=== PATIENT | male | born 1990 | race Caucasian/White ===

== ENCOUNTER 2023-05-18 22:57 | Emergency (ER) | payer MEDICAID ==
[~2023-05-18] VITALS: Ht 167.6 cm; Wt 106.8 kg
[2023-05-19 04:22] VITALS: TEMP 98
[2023-05-19] MEDS ORDERED: ibuprofen tablet 400 MG TABLET PO ONE (04:50)
--- NOTE | 2023-05-19 05:13 | NUR ---
Pt stating pain on scale of 8 out of 10. Has ROM in LE.
[2023-05-19] MEDS ORDERED: predniSONE 20 mg tablet PO ONE (07:45)
[2023-05-19] MEDS ORDERED: NAPR-56 PO (07:46)
[2023-05-19] MEDS ORDERED: PRED20TA PO (07:46)
[2023-05-19 08:26] VITALS: BP 128/83; PULSE 86; RESP 18; O2SAT 96
== END 2023-05-19 08:28 | disposition home or self-care (01) ==
LOC: ER 22:58
DX: S39.012A Strain of muscle, fascia and tendon of lower back, initial encounter (principal); Z79.899 Other long term (current) drug therapy; X58.XXXA Exposure to other specified factors, initial encounter; Y93.89 Activity, other specified; Y92.89 Other specified places as the place of occurrence of the external cause; Y99.8 Other external cause status
CPT/HCPCS: 99285; J7512

== ENCOUNTER 2024-01-14 13:30 | Emergency (ER) | payer MEDICAID ==
[~2024-01-14] VITALS: Ht 167.6 cm; Wt 127.5 kg
[2024-01-14 13:59] VITALS: TEMP 98.6
[2024-01-14] MEDS: HYDROcodone/acetaminophen 5mg/325mg tablet PO ONE (14:40)
[2024-01-14] MEDS: ketorolac trometh inj. 60 MG/2 ML VIAL IM ONE (14:40)
[2024-01-14 14:41] LABS: HEMATOCRIT 47.5 % (42.0-52.0); MONOCYTES # (AUTO) 0.5 X10'3 (0-0.9)
[2024-01-14 14:43] LABS: BASOPHILS % (AUTO) 0.4 % (0-1); EOSINOPHILS % (AUTO) 0 % (0-6); LYMPHOCYTES % (AUTO) 6.8 % (21-51); MEAN CORPUSCULAR HGB CONC 33.8 g/dL (33.0-36.5); MEAN CORPUSCULAR VOLUME 88.9 FL (78-98); MEAN PLATELET VOLUME 8.8 FL (7.4-10.4); MONOCYTES % (AUTO) 3.3 % (2-12); NEUTROPHILS # (AUTO) 12.5 X10'3 (1.8-7.7); NEUTROPHILS % (AUTO) 89.5 % (42-75); PLATELET COUNT 231 X10'3 (140-440); RED BLOOD COUNT 5.35 X10'6 (4.70-6.10); RED CELL DISTRIBUTION WIDTH 14.4 % (11.5-14.5)
[2024-01-14] MEDS: ketorolac trometh. 30mg/ml inj. IM ONE (14:45)
[2024-01-14 14:58] LABS: ALANINE AMINOTRANSFERASE 33 U/L (12-78); ALBUMIN/GLOBULIN RATIO 1.1 (1.1-1.5); ALKALINE PHOSPHATASE 119 IU/L (46-116); ANION GAP 3 (8-16); ASPARTATE AMINO TRANSFERASE 10 U/L (10-37); BILIRUBIN,TOTAL 0.5 MG/DL (0.1-1.0); BLOOD UREA NITROGEN 12 MG/DL (7-18); BUN/CREATININE RATIO 13.5 (10.0-20.0); CALCIUM 9.1 MG/DL (8.5-10.1); CHLORIDE 107 MMOL/L (99-107); CREATININE 0.89 MG/DL (0.60-1.10); GLUCOSE 105 MG/DL (70-104); LIPASE 23 U/L (16-77); POTASSIUM 4.4 MMOL/L (3.5-5.1); SODIUM 143 MMOL/L (135-145); TOTAL CARBON DIOXIDE 32.9 MMOL/L (24-32); TOTAL PROTEIN 7.7 G/DL (6.4-8.2); eCRCL 109 ML/MIN; eGFR > 90 ML/MIN
[2024-01-14 15:16] LABS: BILIRUBIN,URINE NEGATIVE (Neg); CLARITY,URINE SLIGHTLY CLOUDY (Clear); COLOR,URINE YELLOW (Yellow); GLUCOSE, URINE NEGATIVE (Neg); KETONES,URINE NEGATIVE (Neg); LEUKOCYTE ESTERASE ,URINE NEGATIVE (Neg); NITRITES, URINE NEGATIVE (Neg); OCCULT BLOOD,URINE LARGE (Neg); PROTEIN,URINE NEGATIVE (Neg); UROBILINOGEN,URINE 0.2 E.U/dL (0.2-1.0)
[2024-01-14 15:17] LABS: UA COLLECTION TYPE CLN CATCH MIDSTREAM
[2024-01-14 15:23] LABS: MUCUS STRANDS MANY /LPF (Neg); SQUAMOUS EPITHELIAL CELL,UR NONE SEEN /LPF (FEW)
[2024-01-14 15:24] LABS: BACTERIA,URINE FEW /HPF (Neg); RBC,URINE TNTC /HPF (0-2); TRANSITIONAL EPI CELLS,URINE FEW /HPF; WBC,URINE 0-4 /HPF (0-4)
[2024-01-14] MEDS ORDERED: HYDR-3965 PO (16:15)
[2024-01-14 17:10] VITALS: BP 120/77; PULSE 90; RESP 17; O2SAT 98
== END 2024-01-14 17:12 | disposition home or self-care (01) ==
LOC: ER 13:30
DX: N20.0 Calculus of kidney (principal)
CPT/HCPCS: 36415; 74176; 80053; 81001; 83690; 85025; 99284